=== PATIENT | female | born 2000 | race Asian ===

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

== ENCOUNTER 2021-11-25 22:02 | Emergency (ER) | payer SELFPAY ==
[~2021-11-25] VITALS: Ht 170.2 cm; Wt 70.3 kg
--- NOTE | 2021-11-25 22:05 | NUR ---
PT [facility]. TAKEN TO BED 7
[2021-11-25 22:13] VITALS: BP 119/62
--- NOTE | 2021-11-25 22:39 | NUR ---
Dr. Osorio examining patient.
--- NOTE | 2021-11-25 22:51 | NUR ---
Kim hallman in [facility] - 11/26/21 at 0104 by [facility] AT BEDSIDE
--- NOTE | 2021-11-25 23:01 | NUR ---
FRIEND AT BEDSIDE. STATES PATIENT STARTING DRINKING AROUND 1900. CELEBRATING UPCOMING GRADUATION.
[2021-11-25] MEDS ORDERED: NACL 0.9% 1,000 ML IV ONE (23:05)
[2021-11-25] MEDS ORDERED: ONDANSETRON 4 MG/2 ML VIAL IVP ONE (23:05)
[2021-11-25 23:59] LABS: BASOPHILS % (AUTO) 0.4 % (0.0-2.0); EOSINOPHILS # (AUTO) 0.1 K/uL (0-0.4); EOSINOPHILS % (AUTO) 0.9 % (0.0-4.0); HEMATOCRIT 40.6 % (36-48); HEMOGLOBIN 13.6 g/dL (12.0-16.0); LYMPHOCYTES # (AUTO) 1.2 K/uL (2.5-16.5); LYMPHOCYTES % (AUTO) 17.1 % (20.5-51.1); MEAN CORPUSCULAR HEMOGLOBIN 30 pg (27-31); MEAN CORPUSCULAR HGB CONC 33 g/dL (33-37); MEAN CORPUSCULAR VOLUME 89.4 fL (80-94); MONOCYTES # (AUTO) 0.3 K/uL (0.8-1.0); MONOCYTES % (AUTO) 4.8 % (1.7-9.3); NEUTROPHILS # (AUTO) 5.4 K/uL (1.8-7.7); NEUTROPHILS % (AUTO) 76.8 % (42.2-75.2); PLATELET COUNT (AUTO) 279 K/uL (140-450); RED BLOOD CELL COUNT(AUTO) 4.54 MIL/uL (4.20-5.40); RED CELL DISTRIBUTION WIDTH 13.5 % (11.6-13.7); WHITE BLOOD COUNT (AUTO) 7.1 K/uL (4.8-10.8)
--- NOTE | 2021-11-26 00:04 | NUR ---
PT IS SLEEPING . RESP EVEN AND UNLABORED. NO DISTRESS NOTED. FRIEND AT BEDSIDE
[2021-11-26 00:19] LABS: ALBUMIN 4.7 g/dL (3.4-5.0); ANION GAP 16.7 (8-16); CREATININE 0.7 mg/dL (0.6-1.3); POTASSIUM 3.7 mmol/L (3.5-5.1); TOTAL BILIRUBIN 0.9 mg/dL (0.0-1.0)
--- NOTE | 2021-11-26 01:16 | NUR ---
PT AMBULATES TO BATHROOM
--- NOTE | 2021-11-26 02:08 | NUR ---
IV removed, catheter intact and site benign. Applied folded 4x4 gauze and tape to stop bleeding.
[2021-11-26 02:11] VITALS: BP 106/72
--- NOTE | 2021-11-26 02:11 | NUR ---
Patient discharged. Written and verbal after care instructions given and explained. Patient verbalized understanding. Ambulatory with steady gait. ID band removed. All questions addressed prior to discharge. Advised to follow up with PCP.
--- NOTE | 2021-11-26 02:14 | NUR ---
The patient's care was reviewed and supervised by Amanda Castle RN. Chart checked.
== END 2021-11-26 02:11 | disposition home or self-care (01) ==
LOC: MED 22:02
DX: F10.129 Alcohol abuse with intoxication, unspecified (principal); R11.2 Nausea with vomiting, unspecified; Y90.8 Blood alcohol level of 240 mg/100 ml or more
CPT/HCPCS: 36415; 80053; 84703; 85025; 96361; 96374; 99283; G0482; J2405; J7030